=== PATIENT | female | born 1945 | race Caucasian/White ===

== ENCOUNTER → 2016-07-01 | Outpatient (CLI) | payer MEDICARE, OTHER ==
--- NOTE | 2016-07-01 15:33 | Diagnostic Imaging Report ---
EXAMINATION: PET-CT TECHNIQUE: Serum glucose level at the time of the study is: 91 mg/dL. 12 mCi of FDG was administered intravenously followed by obtaining PET images with corresponding noncontrast CT scan images. The CT scan was performed for anatomic correlation and attenuation correction and was not performed according to the diagnostic protocol of the areas covered. The scan was performed from the head to mid thighs. INDICATION: Left upper lobe and liver masses. FINDINGS: The brain has symmetric FDG uptake. There is a focal area of hypermetabolism seen in the oral cavity which appears to be superimposed on the mid to posterior aspect of the tongue and is associated with a maximum SUV of 7. No obvious underlying lesion is seen on the correlating localizer CT. Given the localized focal nature of this lesion, an underlying neoplasm is suspected. Mild increased uptake is seen in the vocal cords which is probably physiologic. There is an intensely hypermetabolic centrally necrotic mass seen in the left upper lobe with a maximum SUV of 12. This is a very large mass with surrounding areas of atelectasis. The approximate measurements for the mass without the surrounding non-hypermetabolic tissue is 7 x 7 cm. There is a hypermetabolic involved infracarinal lymph node measuring 1.7 x 2.8 cm. A large hypermetabolic mass in the right hepatic lobe extending over approximately 10 cm is also associated with significant hypermetabolism with a maximum SUV of 9. There are multiple hypermetabolic bone lesions in the sacrum, left ileum, and sternum without obvious lytic or blastic component seen on the CT scan, compatible with osseous metastasis. There is also a hypermetabolic lymph node with a maximum SUV of 6 in the left inguinal region anterior to the femoral vessels measuring 1.2 cm. IMPRESSION: Findings are compatible with metastatic cancer. The primary cancer is most likely the left upper lobe lung mass, although less likely the mass in the tongue or the liver could potentially be a primary cancer. An involved hypermetabolic infracarinal lymph node and multiple bone metastases are seen in addition to the liver mass. There is also a moderately hypermetabolic slightly enlarged left inguinal lymph node which would be the easiest target for biopsy, if needed. Dictated by: Dictated on workstation # [id number]
== END ==
LOC: RAD 11:00
PROVIDERS: ATTEND Internal Medicine Critical Care Medicine
DX: R91.8 Other nonspecific abnormal finding of lung field (principal); R16.0 Hepatomegaly, not elsewhere classified; C79.51 Secondary malignant neoplasm of bone